=== PATIENT | female | born 1995 | race Caucasian/White ===

== ENCOUNTER 2019-01-15 23:36 | Emergency (ER) | payer OTHER ==
[2019-01-16 00:11] VITALS: BP 155/98; PULSE 83; TEMP 98.6; BMI 20.5
--- NOTE | 2019-01-16 02:24 | PDOC ---
History of Present Illness - General Chief Complaint: Nausea/Vomiting Stated Complaint: PAIN,VOMITING Time Seen by Provider: 01/16/19 02:24 History Source: Patient Exam Limitations: No Limitations - History of Present Illness Initial Comments: 01/16/19 02:46 23 yo F with pmhx of gastritis presents with 2 day history of intractable vomiting. She states that for the past day she has vomited over 20 times and now has become billous. She states she suffers from gastritis and has been admitted before for intractable vomiting. She admits to daily marijuana use. She took omeprazole today with no relief. She states the only thing that make it better is hot showers. She has epigastric pain that is constant 10/10 non radiating. Accompanied by chills today. She denies CP, SOB, recent travel, change in diet, fever or sick contacts. Timing/Duration: 24 hours Severity: severe Past History - Travel Traveled outside of the country in the last 30 days: No Close contact w/someone who was outside of country & ill: No - Past Medical History Allergies/Adverse Reactions: Allergies Allergy/AdvReac Type Severity Reaction Status Date / Time No Known Allergies Allergy Verified 01/16/19 01:06 Home Medications: Ambulatory Orders Omeprazole 20 mg PO DAILY 01/16/19 COPD: No GI Disorders: Yes (gastritis ) Other medical history: gastritis - Suicide/Smoking/Psychosocial Hx Smoking History: Never smoked Have you smoked in the past 12 months: No Information on smoking cessation initiated: No Hx Alcohol Use: No Drug/Substance Use Hx: No Substance Use Type: Marijuana Patient Lives Alone: No Lives with/in: parents Review of Systems - Review of Systems Able to Perform ROS?: Yes Is the patient limited Amharic proficient: No Constitutional: Yes: Chills, Diaphoresis, Loss of Appetite HEENTM: No: Recent change in vision Respiratory: No: Cough, Shortness of Breath Cardiac (ROS): No: Chest Pain, Edema ABD/GI: Yes: Nausea, Poor Appetite, Poor Fluid Intake, Vomiting. No: Diarrhea : No: Dysuria, Hematuria All Other Systems: Reviewed and Negative *Physical Exam - Vital Signs Last Vital Signs Temp Pulse Resp BP Pulse Ox 98.6 F 83 18 155/98 100 01/16/19 00:09 01/16/19 00:09 01/16/19 00:09 01/16/19 00:09 01/16/19 00:09 - Physical Exam General Appearance: Yes: Appropriately Dressed, Moderate Distress HEENT: positive: [place], Normal Voice Neck: positive: Trachea midline, Supple Respiratory/Chest: positive: Lungs Clear, Normal Breath Sounds. negative: Respiratory Distress, Accessory Muscle Use Cardiovascular: positive: S1, S2, Tachycardia. 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 Based off history most likely secondary to cannabinoid hyperemesis. Will give IVF, Zofran , and haldol. EKG- NSR, no st or t wave abnormalities. QTc WNL 01/16/19 05:45 * Patient improved significantly. * Sleeping comfortably will reassess and discharge home with instruction to stop smoking Marijuana . *DC/Admit/Observation/Transfer Diagnosis at time of Disposition: Cannabinoid hyperemesis syndrome - Discharge Dispostion Disposition: HOME Condition at time of disposition: Improved Decision to Admit order: No - Referrals Referrals: Nancy Wyman MD [Primary Care Provider] - - Patient Instructions Printed Discharge Instructions: DI for Cyclic Vomiting Syndrome-Child Additional Instructions: You have been diagnosed with Cannabinoid hyperemesis. This is a result of chronic marijuana use. It is strongly advised that you stop using marijuana in order to avoid future episodes. You can increase your activity as tolerated. resume a regular diet. Follow up with PCP next week. If nausea and vomiting persist or you develop fever or chills please return to ER immediately. - Post Discharge Activity
--- NOTE | 2019-01-16 02:25 | PDOC ---
Attending Attestation - Resident Resident Name: Gt Tam - ED Attending Attestation I have performed the following: I have examined & evaluated the patient, The case was reviewed & discussed with the resident, I agree w/resident's findings & plan - HPI HPI: 01/17/19 01:03 Pt comes with cyclical vomiting and states that she has gastritis. She admits to using marijuana on a regular basis. - Physicial Exam PE: 01/17/19 01:04 Agree with resident exam - Medical Decision Making 01/17/19 01:04 Pt hydrated; rx with haldol and feeling vastly improved. Pt has normal labs and she will be discharged home.
[2019-01-16] MEDS ORDERED: ONDANSETRON 4 MG/2 ML VIAL IVPUSH ONE (02:27)
[2019-01-16] MEDS ORDERED: SODIUM CHLORIDE 1,000 ML IV STA (02:43)
[2019-01-16] MEDS ORDERED: ONDANSETRON 4 MG/2 ML VIAL ONE (02:46)
[2019-01-16 03:01] LABS: BASO % 0.1 % (0-2.0); HEMATOCRIT 44.8 % (32.4-45.2); HEMOGLOBIN 14.7 GM/dL (10.7-15.3); LYMPH % 8.7 % (8-40); MCH 31.3 pg (25.7-33.7); MCHC 32.8 g/dl (32.0-36.0); MEAN CELL VOLUME 95.4 fl (80-96); MONO % 6.9 % (3.8-10.2); NEUT % 84.3 % (42.8-82.8); PLATELET COUNT 322 K/MM3 (134-434); RDW 13.7 % (11.6-15.6); WHITE BLOOD COUNT 15.1 K/mm3 (4.0-10.0)
[2019-01-16 03:05] LABS: HCG,QUALITATIVE URINE Negative
[2019-01-16] MEDS ORDERED: HALOPERIDOL LACTATE 5 MG/ML IM ONE ×2 (03:40→03:54)
[2019-01-16 03:41] LABS: ALBUMIN 4.6 g/dl (3.4-5.0); BILIRUBIN,TOTAL 0.4 mg/dL (0.2-1); CALCIUM 9.8 mg/dL (8.5-10.1); CREATININE 0.7 mg/dL (0.55-1.3); POTASSIUM 3.7 mmol/L (3.5-5.1); TOT PROT 7.9 g/dl (6.4-8.2)
[2019-01-16 03:43] LABS: EPI CELLS 4.2 /HPF (0-5/HPF); HYALINE CASTS 11 /lpf (0-8); PH,URINE 6.5 (5.0-8.0); URINE APPEARANCE CLEAR; URINE BACTERIA 59.9 /hpf (NEGATIVE); URINE BILIRUBIN NEGATIVE (NEGATIVE); URINE COLOR YELLOW; URINE GLUCOSE (UA) NEGATIVE (NEGATIVE); URINE KETONE 3+ (NEGATIVE); URINE LEUK ESTERASE TRACE (NEGATIVE); URINE NITRITE NEGATIVE (NEGATIVE); URINE PROTEIN TRACE (NEGATIVE); URINE RBC 23 /hpf (0-4); URINE UROBILINOGEN 0.2 mg/dL (0.2-1.0); URINE WBC 6 /hpf (0-5)
--- NOTE | 2019-01-17 15:16 | EKG ---
Test Reason : Blood Pressure : / mmHG Vent. Rate : 071 BPM Atrial Rate : 071 BPM P-R Int : 152 ms QRS Dur : 098 ms QT Int : 426 ms P-R-T Axes : 058 079 070 degrees QTc Int : 462 ms NORMAL SINUS RHYTHM WITH SINUS ARRHYTHMIA POSSIBLE LEFT ATRIAL ENLARGEMENT BORDERLINE ECG NO PREVIOUS ECGS AVAILABLE Confirmed by REINIER NASH MD ([id number]) on 01/17/2019 3:15:47 PM Referred By: Confirmed By:REINIER NASH MD
== END 2019-01-16 06:07 | disposition home or self-care (01) ==
LOC: JER 23:36
PROC: 3E023GC Introduction of Other Therapeutic Substance into Muscle, Percutaneous Approach (ICD-10-PCS; principal; 2019-01-15)
PROC: 3E0337Z Introduction of Electrolytic and Water Balance Substance into Peripheral Vein, Percutaneous Approach (ICD-10-PCS; 2019-01-15)
PROC: 3E033GC Introduction of Other Therapeutic Substance into Peripheral Vein, Percutaneous Approach (ICD-10-PCS; 2019-01-15)
DX: F12.988 Cannabis use, unspecified with other cannabis-induced disorder (principal)
CPT/HCPCS: 36415; 80053; 81003; 83690; 84703; 85025; 93005; 93010; 96361; 96372; 96374; 99282-25; J7030

== ENCOUNTER 2022-08-30 17:26 | Emergency (ER) | payer OTHER ==
[2022-08-30 17:33] VITALS: RESP 18; TEMP 98; BMI 24.0
[2022-08-30] MEDS ORDERED: IBUPROFEN 400 MG TABLET (FP) PO ONE ×2 (17:34→18:00)
[2022-08-30] MEDS ORDERED: ACETAMINOPHEN 500 MG TABLET (FP) PO ONE (17:34)
[2022-08-30] MEDS ORDERED: ACETAMINOPHEN 500 MG TABLET (FP) ONE (18:01)
[2022-08-30 18:45] LABS: BASO % 0.4 % (0-2.0); EOS % 3.5 % (0-4.5); HEMOGLOBIN 14.1 GM/dL (10.7-15.3); LYMPH % 37.6 % (8-40); MCH 31.1 pg (25.7-33.7); MCHC 34.4 g/dl (32.0-36.0); MEAN CELL VOLUME 90.4 fl (80-96); MEAN PLT VOLUME 9.4 fl (7.5-11.1); NEUT % 50.5 % (42.8-82.8); PLATELET COUNT 307 10^3/uL (134-434); RBC 4.53 M/mm3 (3.60-5.2); RDW 13.7 % (11.6-15.6); WHITE BLOOD COUNT 9.8 K/mm3 (4.0-10.0)
[2022-08-30 19:07] LABS: ACTIVATED PTT 33.8 SECONDS (25.2-36.5); INR 1.09 (0.83-1.09); PROTHROMBIN TIME (PATIENT) 12.5 SEC (9.7-13.0)
[2022-08-30 19:08] LABS: ALBUMIN 4.4 g/dl (3.4-5.0); BLOOD UREA NITROGEN 8.6 mg/dL (7-18); CALCIUM 9.5 mg/dL (8.5-10.1)
[2022-08-30 19:11] LABS: CREATININE 0.8 mg/dL (0.55-1.3)
[2022-08-30 19:13] LABS: TOT PROT 7.5 g/dl (6.4-8.2)
[2022-08-30 19:14] LABS: BILIRUBIN,TOTAL 0.6 mg/dL (0.2-1)
[2022-08-30 21:13] VITALS: BP 124/74; PULSE 71
== END 2022-08-30 21:31 | disposition home or self-care (01) ==
LOC: JER 17:26
DX: R60.0 Localized edema (principal)
CPT/HCPCS: 36415; 71046-TC-FY; 80053; 84703; 85025; 85610; 85730; 93005; 93010; 93971-TC; 99285-25